=== PATIENT | female | born 1980 | race African-American/Black ===

== ENCOUNTER 2017-11-29 15:01 | Emergency (ER) | payer BC ==
[2017-11-29 15:05] VITALS: BP 120/68; PULSE 67; TEMP 98.4; BMI 28.8
[2017-11-29] MEDS ORDERED: AMOXICILLIN 500 MG CAPSULE (FP) PO ONE (15:46)
--- NOTE | 2017-11-29 15:46 | PDOC ---
History of Present Illness - General Chief Complaint: Toothache Stated Complaint: TOOTHACHE Time Seen by Provider: 11/29/17 15:22 History Source: Patient Exam Limitations: No Limitations - History of Present Illness Initial Comments: 11/29/17 16:17 Patient came with severe left lower molar pain/jaw pain that radiates up into TMJ and down neck. States knows had a wound that became broken and dislodged some weeks ago and did not follow through with dental appointment for evaluation. Since that time over the past few days has had progressive pain and worsening till this morning was unable. Denies fever, denies swelling although has radiating pain. Called 24 hour emergency dental number and was told to come to emergency department Timing/Duration: unsure Severity: moderate, severe Associated Symptoms: reports: fever/chills Past History - Travel Traveled outside of the country in the last 30 days: No Close contact w/someone who was outside of country & ill: No - Past Medical History Allergies/Adverse Reactions: Allergies Allergy/AdvReac Type Severity Reaction Status Date / Time No Known Allergies Allergy Verified 11/29/17 15:04 Home Medications: Ambulatory Orders Albuterol Sulfate Inhaler - [Ventolin Hfa Inhaler -] 1 - 2 inh PO QID 10/31/16 Fluticasone Prop 0.05% Nasal [Flonase -] 1 - 2 spray NS DAILY 10/31/16 Oxycodone HCl/Acetaminophen [Percocet 5-325 mg Tablet -] 1 tab PO Q6H PRN #10 tablet MDD 4 11/29/17 Asthma: Yes COPD: No - Suicide/Smoking/Psychosocial Hx Smoking Status: No Smoking History: Never smoked Have you smoked in the past 12 months: No Number of Cigarettes Smoked Daily: 0 Hx Alcohol Use: No Drug/Substance Use Hx: No Substance Use Type: None Review of Systems - Review of Systems Able to Perform ROS?: Yes Is the patient limited [place] proficient: Yes Constitutional: Yes: Symptoms Reported, See HPI, Chills, Loss of Appetite, Malaise Respiratory: Yes: Symptoms reported, See HPI All Other Systems: Reviewed and Negative *Physical Exam - Vital Signs Last Vital Signs Temp Pulse Resp BP Pulse Ox 98.4 F 67 20 120/68 99 11/29/17 15:02 11/29/17 15:02 11/29/17 15:02 11/29/17 15:02 11/29/17 15:02 - Physical Exam General Appearance: Yes: Nourished, Appropriately Dressed, Apparent Distress HEENT: positive: RDAHA, Normal Voice, TMs Normal, Pharynx Normal, Other (patient with completely eroded crown on her first lower left molar. Root exposed. Has no palpable abscess to medial or lateral gingival surface, no facial swelling. Full range of motion of jaw however has radiating pain extending along mandible and up to TMJ.). negative: Normal ENT Inspection, Pharyngeal Erythema Neck: positive: Tender, Supple. negative: Lymphadenopathy (R), Lymphadenopathy (L) Respiratory/Chest: positive: Chest Tender, Normal Breath Sounds Gastrointestinal/Abdominal: positive: Soft. negative: Tender Musculoskeletal: positive: Normal Inspection. negative: Vertebral Tenderness Extremity: positive: Normal Capillary Refill, Normal Inspection, Tender Integumentary: positive: Normal Color, Dry, Warm Neurologic: positive: spinning frame tender II-XII NML intact, Fully Oriented, Alert, Normal Mood/ Affect, Normal Response, Motor Strength 5/5 Medical Decision Making - Medical Decision Making 11/29/17 16:19 Dental injury with dental pain. Bupivacaine block placed to left lower mandibular angle with good achievement of dental anesthesia. Provided #10 tablets of Percocet and encouraged to continue ibuprofen 400 mg every 6 hours until seen by dentist. Also prescribed amoxicillin 500 mg 3 times a day *DC/Admit/Observation/Transfer Diagnosis at time of Disposition: Pain due to dental caries - Discharge Dispostion Disposition: HOME Condition at time of disposition: Stable Admit: No - Referrals Referrals: Little Avilez MD [Primary Care Provider] - - Patient Instructions Printed Discharge Instructions: DI for Tooth Decay, DI for Dental Pain Additional Instructions: Rest, drink lots of fluids: Teas, water, soups Saltwater gargles/ keep mouth clean and rinse after each meal May use wet teabag for pain relief to area Avoid hard chewing foods, stick to ice cream, Jell-O, yogurt etc. Tylenol or Motrin for fever and pain Complete all medication as prescribed Seek dental appointment as soon as possible for evaluation of dental injury/pain Followup with private physician in one to 2 days as needed Return to emergency department for worsened symptoms, fevers, swelling to face or worsened pain - Post Discharge Activity Forms/Work/School Notes: Back to Work
[2017-11-29] MEDS ORDERED: IBUPROFEN 600 MG TABLET (FP) PO ONE (16:20)
== END 2017-11-29 16:30 | disposition home or self-care (01) ==
LOC: JERFT 15:01
PROC: 3E013BZ Introduction of Anesthetic Agent into Subcutaneous Tissue, Percutaneous Approach (ICD-10-PCS; principal; 2017-11-29)
DX: K02.9 Dental caries, unspecified (principal)
CPT/HCPCS: 99281-25

== ENCOUNTER 2018-09-24 20:39 | Emergency (ER) | payer BC ==
--- NOTE | 2018-09-24 20:47 | PDOC ---
Rapid Medical Evaluation Chief Complaint: Pain Time Seen by Provider: 09/24/18 20:43 Medical Evaluation: Allergies Allergy/AdvReac Type Severity Reaction Status Date / Time No Known Allergies Allergy Verified 11/29/17 15:04 09/24/18 20:44 I have performed a brief in person evaluation of this patient. The patient present with a CC of: Abd pain x 3 weeks Pt is a 37 YO female who states over the past 3 weeks she has had RUQ pain x 3 weeks. She states she went to her skein dyer and she was given Miralax and a medication for GERD. No hx of abdominal surgeries. Pain 06/09. Pertinent PE findings: Lungs Clear Heart RRR Abd: Soft, non distended. Bowel sounds in all four quadrants. Pain upon palpation to the RUQ, negative Reeves sign. MS: Moves all extremities without difficulty. Neuro: Alert Psych: Appropriate affect I have ordered the following: Abdominal protocol The patient will proceed to the ED for further evaluation: Discharge Disposition - Diagnosis Abdominal pain Qualifiers: Abdominal location: right upper quadrant Qualified Code(s): R10.11 - Right upper quadrant pain - Referrals Referrals: Little Avilez MD [Primary Care Provider] - - Patient Instructions - Post Discharge Activity
[2018-09-24 20:48] VITALS: BP 141/89; PULSE 68; TEMP 98.6; BMI 28.6
--- NOTE | 2018-09-24 21:32 | PDOC ---
*Physical Exam - Vital Signs Last Vital Signs Temp Pulse Resp BP Pulse Ox 98.6 F 68 18 141/89 100 09/24/18 20:45 09/24/18 20:45 09/24/18 20:45 09/24/18 20:45 09/24/18 20:45 ED Treatment Course - LABORATORY CBC & Chemistry Diagram: 09/24/18 21:36 09/24/18 21:36 Medical Decision Making - Medical Decision Making 09/24/18 21:33 37 yo F presenting with epigastric pain Pain has worsened over the past day No fevers or chills Evaluated by GI, dx with gastritis, started on maalox and miralax 09/24/18 21:40 Will do Labs Will do US Will re assess 09/25/18 01:16 Laboratory Tests 09/24/18 09/24/18 09/24/18 21:35 21:36 21:36 WBC 3.4 L Hgb 13.3 Hct 40.9 Plt Count 244 Neutrophils % 29.2 L D Lymphocytes % 56.9 H D Total Bilirubin 0.2 AST 22 ALT 21 Lipase 242 Urine Ketones Negative Urine Blood 3+ H Urine Nitrite Negative Ur Leukocyte Esterase Negative Urine WBC (Auto) <1 Urine RBC (Auto) 10 US - no evidence of cholecystitis CT - no acute pathology Will discharge to home *DC/Admit/Observation/Transfer Diagnosis at time of Disposition: Reflux gastritis Abdominal pain Qualifiers: Abdominal location: right upper quadrant Qualified Code(s): R10.11 - Right upper quadrant pain - Discharge Dispostion Disposition: HOME Condition at time of disposition: Stable - Prescriptions Prescriptions: Linaclotide [Linzess] 290 mcg PO DAILY #30 cap Pantoprazole Sodium [Protonix] 40 mg PO DAILY 1 Days #30 tablet.dr - Referrals Referrals: Little Avilez MD [Primary Care Provider] - - Patient Instructions Printed Discharge Instructions: Increased Dietary Fiber May Improve Constipation Conditions With Pelvic Benjamín Additional Instructions: Your CAT scan and abdominal sonogram was normal. Take prescribed medication as prescribed. Follow-up recheck GI as soon as possible - Post Discharge Activity
--- NOTE | 2018-09-24 21:41 | PDOC ---
History of Present Illness - General Chief Complaint: Pain Stated Complaint: ABD PAIN Time Seen by Provider: 09/24/18 20:43 History Source: Patient Exam Limitations: Clinical Condition - History of Present Illness Initial Comments: 09/24/18 21:36 Patient with history of GERD, asthma and chronic constipation present with complain of 3 weeks history of epigastric pain radiating to right upper quadrant which has been worsening since this morning. Patient also report nausea but no vomiting. Patient reports seen a GI the week ago and was placed on MiraLAX for constipation and medication for acid reflux. Patient denies fever , chills. Patient reported pain is worse with food. Patient denies any other symptoms Timing/Duration: other (3 weeks) Past History - Past Medical History Allergies/Adverse Reactions: Allergies Allergy/AdvReac Type Severity Reaction Status Date / Time No Known Allergies Allergy Verified 09/24/18 20:47 Home Medications: Ambulatory Orders Albuterol Sulfate Inhaler - [Ventolin Hfa Inhaler -] 1 - 2 inh PO QID 10/31/16 Fluticasone Prop 0.05% Nasal [Flonase -] 1 - 2 spray NS DAILY 10/31/16 Oxycodone HCl/Acetaminophen [Percocet 5-325 mg Tablet -] 1 tab PO Q6H PRN #10 tablet MDD 4 11/29/17 Linaclotide [Linzess] 290 mcg PO DAILY #30 cap 09/25/18 Pantoprazole Sodium [Protonix] 40 mg PO DAILY 1 Days #30 tablet. 09/25/18 Asthma: Yes COPD: No - Suicide/Smoking/Psychosocial Hx Smoking Status: No Smoking History: Never smoked Have you smoked in the past 12 months: No Number of Cigarettes Smoked Daily: 0 Information on smoking cessation initiated: No Hx Alcohol Use: No Drug/Substance Use Hx: No Substance Use Type: None Review of Systems - Review of Systems Able to Perform ROS?: Yes Is the patient limited Citizen Of [place] proficient: No Constitutional: No: Chills, Fever, Weakness Respiratory: No: Symptoms reported Cardiac (ROS): No: Symptoms Reported ABD/GI: Yes: See HPI, Constipated, Nausea, Abdominal cramping (epigastric and RUQ). No: Abd. Pain w/ defecation, Diarrhea, Difficulty Swallowing, Rectal Bleeding, Vomiting, Indigestion, Tarry Stools All Other Systems: Reviewed and Negative *Physical Exam - Vital Signs Last Vital Signs Temp Pulse Resp BP Pulse Ox 98.6 F 68 18 141/89 100 09/24/18 20:45 09/24/18 20:45 09/24/18 20:45 09/24/18 20:45 09/24/18 20:45 - Physical Exam Comments: 09/24/18 21:38 GENERAL: Well developed, well nourished. Awake and alert. No acute distress. CARDIOVASCULAR: Regular rate and rhythm. No murmurs, rubs, or gallops. Distal pulses are 2+ and symmetric. PULMONARY: No evidence of respiratory distress. Lungs clear to auscultation bilaterally. No wheezing, rales or rhonchi. ABDOMINAL: Moderate epigastric and right upper quadrant tenderness.Soft. Non- distended. No rebound or guarding. No organomegaly. Normoactive bowel sounds. MUSCULOSKELETAL Normal range of motion at all joints. No bony deformities or tenderness. No CVA tenderness. SKIN: Warm and dry. Normal capillary refill. No rashes. No jaundice. NEUROLOGICAL: Alert, awake, oriented. PSYCHIATRIC: Cooperative. Good eye contact. Appropriate mood and affect. General Appearance: Yes: Nourished, Appropriately Dressed. No: Apparent Distress ED Treatment Course - LABORATORY CBC & Chemistry Diagram: 09/24/18 21:36 09/24/18 21:36 Medical Decision Making - Medical Decision Making 09/24/18 21:40 Patient with history of GERD and chronic constipation present with complain of worsening epigastric and right upper quadrant pain for 3 weeks with nausea. Exam significant for epigastric and right upper quadrant tenderness without rebound or guarding. CBC ordered. UA urine culture ordered. Abdominal ultrasound ordered. Chemistry labs ordered. Treat based on lab and imaging results 09/24/18 22:53 CBC,CMP,UA with no acute findings. abdominal ultrasound with no acute findings. abdominal CT with IV contrast ordered. treat based on CT results 09/25/18 01:02 CT of abdomen shows not acute pathology. Patient stable for home discharge with GI follow-up *DC/Admit/Observation/Transfer Diagnosis at time of Disposition: Reflux gastritis Abdominal pain Qualifiers: Abdominal location: right upper quadrant Qualified Code(s): R10.11 - Right upper quadrant pain - Discharge Dispostion Disposition: HOME Condition at time of disposition: Stable Decision to Admit order: No - Prescriptions Prescriptions: Linaclotide [Linzess] 290 mcg PO DAILY #30 cap Pantoprazole Sodium [Protonix] 40 mg PO DAILY 1 Days #30 tablet.dr - Referrals Referrals: Little Avilez MD [Primary Care Provider] - - Patient Instructions Printed Discharge Instructions: Increased Dietary Fiber May Improve Constipation Conditions With Pelvic Benjamín Additional Instructions: Your CAT scan and abdominal sonogram was normal. Take prescribed medication as prescribed. Follow-up recheck GI as soon as possible - Post Discharge Activity
[2018-09-24 21:45] LABS: BASO % 1.5 % (0-2.0); EOS % 5.5 % (0-4.5); HEMATOCRIT 40.9 % (32.4-45.2); HEMOGLOBIN 13.3 GM/dL (10.7-15.3); LYMPH % 56.9 % (8-40); MCH 28.5 pg (25.7-33.7); MCHC 32.4 g/dl (32.0-36.0); MEAN PLT VOLUME 8.8 fl (7.5-11.1); MONO % 6.9 % (3.8-10.2); NEUT % 29.2 % (42.8-82.8); PLATELET COUNT 244 K/MM3 (134-434); RBC 4.64 M/mm3 (3.60-5.2); RDW 13.1 % (11.6-15.6); WHITE BLOOD COUNT 3.4 K/mm3 (4.0-10.0)
[2018-09-24 22:12] LABS: ALBUMIN 3.8 g/dl (3.4-5.0); ALK PHOS 66 U/L (45-117); ANION GAP 5 MMOL/L (8-16); BILIRUBIN,TOTAL 0.2 mg/dL (0.2-1); BLOOD UREA NITROGEN 7 mg/dL (7-18); CALCIUM 8.9 mg/dL (8.5-10.1); CHLORIDE 107 mmol/L (98-107); CO2 31 mmol/L (21-32); CREATININE 0.8 mg/dL (0.55-1.3); GLUCOSE,RANDOM 80 mg/dL (74-106); LIPASE 242 U/L (73-393); SGOT/AST 22 U/L (15-37); SGPT/ALT 21 U/L (13-61); SODIUM 143 mmol/L (136-145); TOT PROT 6.8 g/dl (6.4-8.2)
[2018-09-24 22:16] LABS: URINE APPEARANCE CLEAR; URINE BILIRUBIN NEGATIVE (<2.0 mg/dL); URINE COLOR STRAW; URINE GLUCOSE (UA) NEGATIVE (NEGATIVE); URINE KETONE NEGATIVE (NEGATIVE); URINE LEUK ESTERASE NEGATIVE (NEGATIVE); URINE NITRITE NEGATIVE (NEGATIVE); URINE PROTEIN NEGATIVE (NEGATIVE); URINE UROBILINOGEN NEGATIVE mg/dL (0.2-1.0)
[2018-09-24 22:21] LABS: EPI CELLS RARE /HPF (FEW); URINE MUCUS RARE
== END 2018-09-25 01:23 | disposition home or self-care (01) ==
LOC: JER 20:39
DX: K21.9 Gastro-esophageal reflux disease without esophagitis (principal)
CPT/HCPCS: 36415; 74177-TC; 76705-TC; 80053; 81003; 81015; 83690; 84703; 85025; 87086; 87186; 99282-25

== ENCOUNTER 2021-02-01 16:48 | Emergency (ER) | payer OTHER ==
[2021-02-01 16:55] VITALS: BP 150/82; PULSE 89; TEMP 98.7; BMI 28.8
[2021-02-01] MEDS ORDERED: ACETAMINOPHEN 500 MG TABLET (FP) ONE (18:54)
[2021-02-01] MEDS ORDERED: ACETAMINOPHEN 325 MG TABLET (FP) PO ONE (18:55)
== END 2021-02-01 20:26 | disposition home or self-care (01) ==
LOC: JER 16:48 → JERFT 16:48
DX: M79.604 Pain in right leg (principal)
CPT/HCPCS: 93971-TC; 99284-25

== ENCOUNTER 2022-12-08 09:22 | Emergency (ER) | payer OTHER ==
[2022-12-08 09:26] VITALS: BP 134/70; PULSE 65; RESP 18; TEMP 98.8; BMI 28.8
[2022-12-08] MEDS ORDERED: IBUPROFEN 600 MG TABLET (FP) PO ONE ×2 (10:27→10:48)
[2022-12-08 12:07] LABS: EOS % 3.1 % (0-4.5); HEMATOCRIT 42.6 % (32.4-45.2); HEMOGLOBIN 13.6 GM/dL (10.7-15.3); LYMPH % 51.3 % (8-40); MCHC 31.9 g/dl (32.0-36.0); MEAN CELL VOLUME 87.8 fl (80-96); MEAN PLT VOLUME 8.9 fl (7.5-11.1); MONO % 9.7 % (3.8-10.2); NEUT % 34.9 % (42.8-82.8); PLATELET COUNT 251 10^3/uL (134-434); RBC 4.85 M/mm3 (3.60-5.2); RDW 13.4 % (11.6-15.6)
[2022-12-08 12:27] LABS: CALCIUM 9.5 mg/dL (8.5-10.1)
[2022-12-08 12:28] LABS: BLOOD UREA NITROGEN 8.5 mg/dL (7-18)
[2022-12-08 12:31] LABS: CREATININE 0.7 mg/dL (0.55-1.3)
[2022-12-08 12:32] LABS: BILIRUBIN,TOTAL 0.5 mg/dL (0.2-1)
[2022-12-08 12:33] LABS: TOT PROT 6.8 g/dl (6.4-8.2)
== END 2022-12-08 12:55 | disposition home or self-care (01) ==
LOC: JERFT 09:22 → JER 09:22 → JERFT 12:55
DX: M79.601 Pain in right arm (principal)
CPT/HCPCS: 36415; 80053; 85025; 93971; 99284-25

== ENCOUNTER 2023-03-26 13:18 | Emergency (ER) | payer OTHER ==
[2023-03-26 13:32] VITALS: BP 139/82; PULSE 71; RESP 18; TEMP 98.3; BMI 28.8
[2023-03-26 15:31] LABS: BASO % 0.8 % (0-2.0); EOS % 4.8 % (0-4.5); HEMATOCRIT 37.9 % (32.4-45.2); HEMOGLOBIN 12.9 GM/dL (10.7-15.3); LYMPH % 49.7 % (8-40); MCH 29.4 pg (25.7-33.7); MEAN CELL VOLUME 86.3 fl (80-96); MEAN PLT VOLUME 10.4 fl (7.5-11.1); MONO % 8.1 % (3.8-10.2); NEUT % 36.6 % (42.8-82.8); PLATELET COUNT 174 10^3/uL (134-434); RBC 4.39 M/mm3 (3.60-5.2); WHITE BLOOD COUNT 4.6 K/mm3 (4.0-10.0)
[2023-03-26 15:38] LABS: INR 1.1 (0.83-1.09); PROTHROMBIN TIME (PATIENT) 12.7 SEC (9.7-13.0)
[2023-03-26 15:40] LABS: ACTIVATED PTT 29.6 SECONDS (25.2-36.5)
[2023-03-26 15:42] LABS: ALBUMIN 3.7 g/dl (3.4-5.0)
[2023-03-26 15:45] LABS: CREATININE 0.7 mg/dL (0.55-1.3)
[2023-03-26 15:46] LABS: BILIRUBIN,TOTAL 0.3 mg/dL (0.2-1)
[2023-03-26 15:47] LABS: TOT PROT 6.5 g/dl (6.4-8.2)
== END 2023-03-26 16:30 | disposition home or self-care (01) ==
LOC: JER 13:18
DX: R07.89 Other chest pain (principal); R00.2 Palpitations; R61 Generalized hyperhidrosis; R06.02 Shortness of breath
CPT/HCPCS: 36415; 71046-TC-FY; 80053; 83690; 83735; 84439; 84443; 84484; 84703; 85025; 85610; 85730; 93005; 93010; 99285-25